=== PATIENT | female | born 1975 | race Caucasian/White ===

== ENCOUNTER 2018-04-16 13:16 | Inpatient (IN) | payer OTHER ==
[~2018-04-16] VITALS: Ht 170.2 cm; Wt 77.1 kg
[2018-04-16] MEDS ORDERED: ABATINEX680 MG PO (13:26)
[2018-04-16] MEDS ORDERED: ZANTAC150 M3 PO (13:26)
[2018-04-16] MEDS ORDERED: CIPRO500 MG PO (13:26)
--- NOTE | 2018-04-16 13:26 | NUR ---
PACINTE AL MOMENTO ESTABLE, ALERT AY ORIENTADA X3 ACOMPANADA DE FMAILIAR, ESTA REFIERE EDDA HIDO A DOCTORS THAYER POR HEMESIS X6 Y DIARREAS X8 LO CUAL AL MOMENTO EL TRATAMIENTO NO ALANIS HECHO EFECTO. SE PASA A AREA DE OBSERVACION, SE CONITNUA MONITOREANDO POR CAMBIOS.
--- NOTE | 2018-04-16 15:19 | NUR ---
SE ORIENTA PTE SOBRE TRATAMIENTO. SE ALONDRA MUESTRAS DE LIONEL Y SE CANALIZA PERIFERALMENTE POR RN GILL QUIEN ADMINISTRA MEDICAMENTOS ORDENADOS. PTE PENDIENTE A RE-EVALUACION POR MEDICO DE TURNO.
[2018-04-20] MEDS ORDERED: OMEPRAZOLE40 MG PO (12:40)
[2018-04-20] MEDS ORDERED: FLAGYL500MG PO (12:40)
[2018-04-20] MEDS ORDERED: PROBIOTIC1 EAC4 PO (12:40)
[2018-04-20] MEDS ORDERED: CIPRO500 MG PO (12:40)
== END 2018-04-20 16:53 | disposition home or self-care (01) | DRG 641 ==
LOC: ER 13:16 → MEDJ 18:20
PROVIDERS: ADMIT Internal Medicine
PROC: BW21ZZZ Computerized Tomography (CT Scan) of Abdomen and Pelvis (ICD-10-PCS; principal; 2018-04-16)
PROC: 8E0ZXY6 Isolation (ICD-10-PCS; 2018-04-16)
DX: E86.0 Dehydration (principal); A09 Infectious gastroenteritis and colitis, unspecified; E87.8 Other disorders of electrolyte and fluid balance, not elsewhere classified